=== PATIENT | male | born 1965 | race Caucasian/White ===

== ENCOUNTER 2020-01-15 12:18 | Emergency (ER) | payer OTHER, SELFPAY ==
[2020-01-15 12:34] VITALS: BP 144/90; PULSE 81; RESP 16; TEMP 36.9; O2SAT 99
--- NOTE | 2020-01-15 12:36 | ED.EAR ---
HPI - Ear Problem General Chief complaint: Upper Respiratory Infection Stated complaint: Possible ear infection Time Seen by Provider: 01/15/20 12:36 Source: patient and RN notes reviewed History of Present Illness HPI Narrative: Patient is a 54-year-old male who presents the urgent care with complaints of bilateral ear discomfort and sore throat. Patient states that he thinks the ear pressure is just from postnasal drainage. Patient states he does have a history of allergies and has been using Zyrtec and nasal spray. Patient states that he woke up this morning with an increased sore throat and some white spots . Patient denies any known exposure to COVID or strep. No other acute complaints. No acute distress noted. Patient read the plan of care. Related Data Home Medications Medication Instructions Recorded Confirmed cetirizine [Zyrtec] 10 mg PO DAILY 01/15/20 01/15/20 fluticasone propionate 2 spray INTRANASAL DAILY 01/15/20 01/15/20 rosuvastatin 10 mg DAILY 01/15/20 01/15/20 Allergies Allergy/AdvReac Type Severity Reaction Status Date / Time No Known Allergies Allergy Unknown Verified 01/15/20 12:42 Review of Systems Review of Systems: Narrative: CONSTITUTIONAL: Denies fever, chills, or sweats. EYES: Denies visual changes, redness, or discharge. ENT: Reports of bilateral otalgia, sore throat and postnasal drainage CARDIOVASCULAR: Denies chest pain, palpitations, or edema. RESPIRATORY: Denies cough or dyspnea. GASTROINTESTINAL: Denies abdominal pain, nausea, vomiting, or diarrhea. GENITOURINARY: Denies dysuria or hematuria. SKIN: Denies rash or itching. MUSCULOSKELETAL: Denies back pain, joint pain, or myalgia. NEUROLOGIC: Denies headache, numbness, or weakness. All other systems reviewed are negative, except as documented in HPI. PMFSH Social History Social History Gender identity (if verbalized by the patient): Male Comments At the time of my signature, I reviewed and agree with the nursing past medical, surgical, social, and family history. There is no relevant family history pertinent to the patient complaint. Exam Narrative: Exam Narrative: GENERAL: This is a well-nourished, well-developed patient, in no apparent distress. HEAD: normocephalic, atraumatic. EYES: PERRL. Sclera clear/white. Vision is grossly intact. EARS: External ears normal, auditory canals clear and without drainage, TMs normal without perforation. Hearing grossly intact. NOSE: External nose normal with no obvious nasal discharge, nares without redness, no rhinorrhea. THROAT: Mucous membranes moist, posterior pharynx clear. No erythema or edema noted. No exudate. NECK: Neck supple, mild bilateral nontender submandibular lymphadenopathy CARDIOVASCULAR: Regular rate and rhythm without murmurs, gallops, or rubs. RESPIRATORY: Clear to auscultation. Breath sounds equal bilaterally. No wheezes, rales, or rhonchi. SKIN: warm, intact with no suspicious lesions or rash, good texture and turgor. NEURO: awake, alert, and oriented to person, place and time. There were no obvious focal neurologic abnormalities. EXTREMITIES: No clubbing, cyanosis, or edema. Course Vital Signs Vital signs: Vital Signs Temperature 98.4 F 01/15/20 12:34 Pulse Rate 81 01/15/20 12:34 Respiratory Rate 16 01/15/20 12:34 Blood Pressure 144/90 H 01/15/20 12:34 Pulse Oximetry 99 01/15/20 12:34 Temperature 98.4 F 01/15/20 12:34 Pulse Rate 81 01/15/20 12:34 Respiratory Rate 16 01/15/20 12:34 Blood Pressure 144/90 H 01/15/20 12:34 Pulse Oximetry 99 01/15/20 12:34 Reviewed?patient is informed that they may have pre-hypertension or hypertension based on a blood pressure reading in the department. I recommend the patient call the primary care provider listed on their discharge instructions or a physician of their choice this week to arrange follow-up for further evaluation of possible pre-hypertension or hypertension. Medical Decision Ma
== END 2020-01-15 12:57 | disposition home or self-care (01) ==
PROVIDERS: Emergency Provider Nurse Practitioner Family
DX: J02.9 Acute pharyngitis, unspecified (principal); E78.00 Pure hypercholesterolemia, unspecified
CPT/HCPCS: 87081; 87880; 99213; G0463

== ENCOUNTER 2020-04-20 17:08 | Emergency (ER) | payer OTHER, SELFPAY ==
[2020-04-20 17:14] VITALS: BP 140/88; PULSE 86; RESP 16; TEMP 36.9; O2SAT 100
--- NOTE | 2020-04-20 17:20 | ED.URI ---
HPI - URI/Sore Throat General Chief Complaint: Upper Respiratory Infection Stated Complaint: possible sinus infection Time Seen by Provider: 04/20/20 17:20 Source: patient and RN notes reviewed Mode of arrival: ambulatory Limitations: no limitations History of Present Illness HPI Narrative: 54-year-old male presents with concern for sinus infection. Reports he has had nasal congestion for 3 to 5 days with scratchy eyes, drainage, cough. Reports he takes Zyrtec and Flonase year-round and has continued to take those medicines. Reports at the beginning of symptoms he had chills, sweats with no fever. Reports his recently tested positive for coronavirus. He was swabbed today, does not know his results. MD elicited complaint: nasal congestion Related Data Home Medications Medication Instructions Recorded Confirmed cetirizine [Zyrtec] 10 mg PO DAILY 01/15/20 04/20/20 fluticasone propionate 2 spray INTRANASAL DAILY 01/15/20 04/20/20 rosuvastatin 10 mg DAILY 01/15/20 04/20/20 Allergies Allergy/AdvReac Type Severity Reaction Status Date / Time No Known Allergies Allergy Unknown Verified 04/20/20 17:21 Review of Systems Review of Systems: Narrative: CONSTITUTIONAL: Denies malaise, chills, sweats, or fever. EYES: Denies visual changes, redness, or discharge. ENT: Reports rhinorrhea, congestion. Denies sinus pain, otalgia and sore throat. CARDIOVASCULAR: Denies chest pain, palpitations, or edema. RESPIRATORY: Reports cough. Denies dyspnea. GASTROINTESTINAL: Denies abdominal pain, nausea, vomiting, diarrhea SKIN: Denies rash or itching. MUSCULOSKELETAL: Denies myalgia. NEUROLOGIC: Denies headache. All systems reviewed & are unremarkable except as noted in HPI and below PMFSH Social History Social History Gender identity (if verbalized by the patient): Male Comments At time of signature, agree with nursing past medical, surgical, social and family history. There is no relevant family history pertinent to the presenting complaint Exam Narrative: Exam Narrative: GENERAL: Well-appearing, well-nourished, and in no acute distress. HEAD: Normocephalic EYES: PERRLA, conjunctivae clear ENT: Nares clear, turbinates edematous and erythematous, clear discharge. Mucous membranes moist. TM pearly beasley with dull light reflex bilaterally; no tragal tenderness. Oropharynx not erythematous without lesions. Tonsils not enlarged and without exudate, no drooling, no hoarseness, no trismus, uvula midline. NECK: Supple. No lymphadenopathy CHEST: Clear to auscultation, breath sounds equal. No wheezing, rhonchi, rales, or stridor. No respiratory distress, speaks in full sentences. HEART: Regular rate and rhythm. No murmur heard. SKIN: Warm, dry, no rash. NEURO: Alert and oriented x3. PSYCH: Normal mood and affect Course Course Emergency Course: Patient is aware of diagnosis, understands and agrees to treatment plan. Anticipatory guidance given. Patient agrees to follow-up as directed and is aware of reasons to seek care at the emergency department. Portions of this record may have been created with voice recognition software Vital Signs Vital signs: Vital Signs Temperature 98.5 F 04/20/20 17:14 Pulse Rate 86 04/20/20 17:14 Respiratory Rate 16 04/20/20 17:14 Blood Pressure 140/88 04/20/20 17:14 Pulse Oximetry 100 04/20/20 17:14 Temperature 98.5 F 04/20/20 17:14 Pulse Rate 86 04/20/20 17:14 Respiratory Rate 16 04/20/20 17:14 Blood Pressure 140/88 04/20/20 17:14 Pulse Oximetry 100 04/20/20 17:14 Reviewed. MDM - URI/Sore Throat MDM Narrative Medical decision making narrative: Differential diagnosis considered: Yao virus, strep pharyngitis, allergic rhinitis, upper respiratory tract infection, sinusitis, rhinosinusitis, nasopharyngitis. viral pharyngitis, otitis media, otitis externa, pneumonia, bronchitis, viral cough syndrome, viral syndrome, and influenza. Exam findings show no acute concerns
== END 2020-04-20 17:35 | disposition home or self-care (01) ==
PROVIDERS: Emergency Provider Nurse Practitioner
DX: J06.9 Acute upper respiratory infection, unspecified (principal); R05 Cough; E78.00 Pure hypercholesterolemia, unspecified
CPT/HCPCS: 99213; G0463

== ENCOUNTER 2021-04-23 10:54 | Emergency (ER) | payer OTHER, SELFPAY ==
[2021-04-23 11:08] VITALS: BP 130/82; PULSE 91; RESP 18; TEMP 37.2; O2SAT 97
--- NOTE | 2021-04-23 11:39 | ED.URI ---
HPI - URI/Sore Throat General Chief Complaint: Upper Respiratory Infection Stated Complaint: Allergies Time Seen by Provider: 04/23/21 11:35 Source: patient, RN notes reviewed and old records reviewed Mode of arrival: ambulatory Limitations: no limitations History of Present Illness HPI Narrative: 55 year old male who present to [facility] care with complaints of sinus pressure, congestion with nasal drainage and sore throat for the past 4 days, Patient reports that he has been taking Zyrtec and Flonase with no improvement in his symptoms. Patient reports that he has history of sinus infections and seasonal allergies in the past.Patient states that he is not aware of any fevers, no chills or sweats or any body aches. He reports that he has had COVID and he has also been vaccinated. MD elicited complaint: sore throat, rhinorrhea and nasal congestion Pertinent past history: sinusitis and seasonal allergies Onset (ago): day(s) (4) Related Data Home Medications Medication Instructions Recorded Confirmed cetirizine [Zyrtec] 10 mg PO DAILY 01/15/20 04/23/21 fluticasone propionate 2 spray INTRANASAL DAILY 01/15/20 04/23/21 rosuvastatin 10 mg DAILY 01/15/20 04/23/21 Allergies Allergy/AdvReac Type Severity Reaction Status Date / Time No Known Allergies Allergy Unknown Verified 04/23/21 11:24 Review of Systems Review of Systems: CONSTITUTIONAL: Denies fever, chills, or sweats. EYES: Denies visual changes, redness, or discharge. ENT: Positive for rhinorrhea, congestion, sore throat, no otalgia, positive for sinus pressure. CARDIOVASCULAR: Denies chest pain, palpitations, or edema. RESPIRATORY:Positive for cough no dyspnea. GASTROINTESTINAL: Denies abdominal pain, nausea, vomiting, or diarrhea. GENITOURINARY: Denies dysuria or hematuria. SKIN: Denies rash or itching. MUSCULOSKELETAL: Denies back pain, joint pain, or myalgia. NEUROLOGIC: Denies acute headache, numbness, or weakness. PSYCHIATRIC: Denies anxiety or depression. All systems reviewed & are unremarkable except as noted in HPI and below PMFSH Past Medical History Medical History (Updated 04/25/21 @ 17:49 by Lorin Coronado NP) Elevated cholesterol Seasonal allergies Sinusitis Surgical History Surgical History (Updated 04/23/21 @ 11:55 by Lorin Coronado NP) H/O removal of cyst Family History Family History (Updated 04/23/21 @ 11:56 by Lorin Coronado NP) Father Heart disease Grandparent Diabetes mellitus Social History Social History (Updated 04/23/21 @ 11:56 by Lorin Coronado NP) Smoking status: Never smoker Alcohol intake: current Alcohol use details: Social Substance use: never Living arrangements: with family Occupation/Education: retired 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 There is no relevant family history pertinent to the presenting complaint Exam Narrative: GENERAL: Well-appearing, well-nourished, and in no acute distress. HEAD: Normocephalic, atraumatic. EYES: PERRLA and EOMI. ENT: Nares red with turbinates swollen, clear rhinorrhea, sinus pressure no epistaxis. Mucous membranes moist.TM's normal with good light reflex, throat is red with uvula swollen, no lesions or exudates, tonsils mildly enlarged, post nasal drainage noted. NECK: Supple.no lymphadenopathy CHEST: Clear to auscultation. No respiratory distress.occasional cough, SAO2 97% on room air HEART: Regular rate and rhythm. No murmur heard. Normal peripheral pulses. ABDOMEN: Soft, nontender, nondistended, normal active bowel sounds. EXTREMITIES: Normal range of motion. No edema. SKIN: Warm, dry, no rash. NEURO: No focal deficits. Alert and oriented x3. Course Vital Signs Vital signs: Vital Signs Temperature 37.2 C 04/23/21 11:08 Pulse Rate 91 04/23/21 11:08 Re
== END 2021-04-23 12:00 | disposition home or self-care (01) ==
PROVIDERS: Emergency Provider Registered Nurse
DX: J32.9 Chronic sinusitis, unspecified (principal)
CPT/HCPCS: 87081; 87880; 99213; G0463

== ENCOUNTER 2022-06-23 15:25 | Emergency (ER) | payer OTHER, SELFPAY ==
--- NOTE | 2022-06-23 15:27 | ED.URI ---
HPI - URI/Sore Throat General Chief Complaint: Upper Respiratory Infection Stated Complaint: uri Time Seen by Provider: 06/23/22 15:50 Source: patient and RN notes reviewed Mode of arrival: ambulatory Limitations: no limitations History of Present Illness HPI Narrative: 56-year-old male presents concern for 4 day history of nasal congestion, rhinorrhea, bilateral ear pain, cough. Reports he has been taking [id number] medications a temporary relief. She he denies fever, aches, chills, sweats. MD elicited complaint: cough and nasal congestion Related Data Home Medications Medication Instructions Recorded Confirmed rosuvastatin 10 mg tablet 10 mg DAILY 01/15/20 06/23/22 Allergies Allergy/AdvReac Type Severity Reaction Status Date / Time No Known Allergies Allergy Unknown Verified 06/23/22 15:27 Review of Systems Review of Systems: CONSTITUTIONAL: Denies malaise, chills, sweats, or fever. EYES: Denies visual changes, redness, or discharge. ENT: Reports rhinorrhea, congestion, otalgia and sore throat. CARDIOVASCULAR: Denies chest pain, palpitations, or edema. RESPIRATORY: Reports cough. Denies dyspnea. GASTROINTESTINAL: Denies abdominal pain, nausea, vomiting, diarrhea SKIN: Denies rash or itching. MUSCULOSKELETAL: Denies myalgia. NEUROLOGIC: Denies headache. All systems reviewed & are unremarkable except as noted in HPI and below PMFSH Past Medical History Medical History (Updated 06/23/22 @ 15:59 by Tiffanie Mccoy NP) Elevated cholesterol Seasonal allergies Sinusitis Surgical History Surgical History (Updated 04/23/21 @ 11:55 by Lorin Coronado NP) H/O removal of cyst Family History Family History (Updated 04/23/21 @ 11:56 by Lorin Coronado NP) Father Heart disease Grandparent Diabetes mellitus Social History Social History (Updated 04/23/21 @ 11:56 by Lorin Coronado NP) Smoking status: Never smoker Alcohol intake: current Alcohol use details: Social Substance use: never 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 There is no relevant family history pertinent to the presenting complaint Exam Narrative: GENERAL: Well-appearing, well-nourished, and in no acute distress. HEAD: Normocephalic EYES: PERRLA, conjunctivae clear ENT: Nares clear, turbinates edematous and erythematous, clear discharge. Mucous membranes moist. TM pearly beasley with dull light reflex bilaterally; no tragal tenderness. Oropharynx not erythematous without lesions. Tonsils not enlarged and without exudate, no drooling, no hoarseness, no trismus, uvula midline. NECK: Supple. No lymphadenopathy CHEST: Clear to auscultation, breath sounds equal. No wheezing, rhonchi, rales, or stridor. No respiratory distress, speaks in full sentences. HEART: Regular rate and rhythm. No murmur heard. SKIN: Warm, dry, no rash. NEURO: Alert and oriented x3. PSYCH: Normal mood and affect Course Course Emergency Course: Patient is aware of diagnosis, understands and agrees to treatment plan. Anticipatory guidance given. Patient agrees to follow-up as directed and is aware of reasons to seek care at the emergency department. Portions of this record may have been created with voice recognition software Level of Care: Express Care Visit Vital Signs Vital signs: Reviewed. MDM - URI/Sore Throat MDM Narrative Medical decision making narrative: Differential diagnosis considered: Yao virus, strep pharyngitis, allergic rhinitis, upper respiratory tract infection, sinusitis, rhinosinusitis, nasopharyngitis. viral pharyngitis, otitis media, otitis externa, pneumonia, bronchitis, viral cough syndrome, viral syndrome, and influenza. Exam findings show no acute concerns or changes; patient is non-toxic appearing and is in no distress. Patient is appropri
[2022-06-23 15:31] VITALS: BP 153/86; PULSE 105; RESP 16; TEMP 37.1; O2SAT 99
== END 2022-06-23 16:04 | disposition home or self-care (01) ==
PROVIDERS: Emergency Provider Nurse Practitioner
DX: J06.9 Acute upper respiratory infection, unspecified (principal); E78.00 Pure hypercholesterolemia, unspecified
CPT/HCPCS: 99213; G0463

== ENCOUNTER 2022-10-26 10:30 | Emergency (ER) | payer OTHER, SELFPAY ==
[2022-10-26 10:38] VITALS: BP 128/81; PULSE 89; RESP 16; TEMP 36.7; O2SAT 99
--- NOTE | 2022-10-26 10:45 | ED.URI ---
HPI - URI/Sore Throat General Chief Complaint: Upper Respiratory Infection Stated Complaint: Sinus Time Seen by Provider: 10/26/22 10:58 Source: patient and RN notes reviewed Mode of arrival: ambulatory Limitations: no limitations History of Present Illness HPI Narrative: 57 year old male presents with concern for cough and nasal congestion for 4 days. He has been taking Zyrtec-D and Mucinex DM. He denies fever, aches, chills, sweats, sore throat, vomiting or diarrhea MD elicited complaint: cough and nasal congestion Related Data Home Medications Medication Instructions Recorded Confirmed rosuvastatin 10 mg tablet 10 mg DAILY 01/15/20 10/26/22 lisinopril 20 mg tablet 20 mg DAILY 10/26/22 10/26/22 Allergies Allergy/AdvReac Type Severity Reaction Status Date / Time No Known Allergies Allergy Unknown Verified 10/26/22 10:47 Review of Systems Review of Systems: CONSTITUTIONAL: Denies malaise, chills, sweats, or fever. EYES: Denies visual changes, redness, or discharge. ENT: Reports rhinorrhea, congestion. Denies sinus pain, otalgia and sore throat. CARDIOVASCULAR: Denies chest pain, palpitations, or edema. RESPIRATORY: Reports persistent cough. Denies dyspnea. GASTROINTESTINAL: Denies abdominal pain, nausea, vomiting, diarrhea SKIN: Denies rash or itching. MUSCULOSKELETAL: Denies myalgia. NEUROLOGIC: Denies headache. All systems reviewed & are unremarkable except as noted in HPI and below PMFSH Past Medical History Medical History (Updated 10/26/22 @ 11:07 by Tiffanie Mccoy NP) Elevated cholesterol Seasonal allergies Sinusitis Surgical History Surgical History (Updated 04/23/21 @ 11:55 by Lorin Coronado NP) H/O removal of cyst Family History Family History (Updated 04/23/21 @ 11:56 by Lorin Coronado NP) Father Heart disease Grandparent Diabetes mellitus Social History Social History (Updated 04/23/21 @ 11:56 by Lorin Coronado NP) Smoking status: Never smoker Alcohol intake: current Alcohol use details: Social Substance use: never Living arrangements: with family Occupation/Education: retired 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 There is no relevant family history pertinent to the presenting complaint Exam Narrative: GENERAL: Well-appearing, well-nourished, and in no acute distress. HEAD: Normocephalic EYES: PERRLA, conjunctivae clear ENT: Nares clear, turbinates edematous and erythematous, clear discharge. Mucous membranes moist. TM pearly beasley with dull light reflex bilaterally; no tragal tenderness. Oropharynx not erythematous without lesions. Tonsils not enlarged and without exudate, no drooling, no hoarseness, no trismus, uvula midline. NECK: Supple. No lymphadenopathy CHEST: Scattered right upper lobe wheeze, otherwise clear to auscultation, breath sounds equal. No rhonchi, rales, or stridor. No respiratory distress, speaks in full sentences. HEART: Regular rate and rhythm. No murmur heard. SKIN: Warm, dry, no rash. NEURO: Alert and oriented x3. PSYCH: Normal mood and affect Course Course Emergency Course: Patient is aware of diagnosis, understands and agrees to treatment plan. Anticipatory guidance given. Patient agrees to follow-up as directed and is aware of reasons to seek care at the emergency department. Portions of this record may have been created with voice recognition software Level of Care: Express Care Visit Vital Signs Vital signs: Vital Signs Temperature 98.0 F 10/26/22 10:38 Pulse Rate 89 10/26/22 10:38 Respiratory Rate 16 10/26/22 10:38 Blood Pressure 128/81 10/26/22 10:38 Pulse Oximetry 99 10/26/22 10:38 Oxygen Delivery Room Air 10/26/22 10:38 Temperature 98.0 F 10/26/22 10:38 Pulse Rate 89 10/26/22 10:38 Respirato
== END 2022-10-26 11:13 | disposition home or self-care (01) ==
PROVIDERS: Emergency Provider Nurse Practitioner
DX: J40 Bronchitis, not specified as acute or chronic (principal); E78.00 Pure hypercholesterolemia, unspecified
CPT/HCPCS: 99213; G0463

== ENCOUNTER 2023-08-04 14:44 | Emergency (ER) | payer OTHER, SELFPAY ==
--- NOTE | 2023-08-04 14:51 | ED.URI ---
HPI - URI/Sore Throat General Chief Complaint: Upper Respiratory Infection Stated Complaint: Sore Throat Time Seen by Provider: 08/04/23 14:50 Source: patient Mode of arrival: ambulatory Limitations: no limitations History of Present Illness HPI Narrative: Patient is a 58-year-old male that presents with body aches and sore throat since Monday. Denies any fever, chills, nausea, vomiting, diarrhea. Patient has been taking ibuprofen Related Data Home Medications Medication Instructions Recorded Confirmed rosuvastatin 10 mg tablet 20 mg PO DAILY 01/15/20 08/04/23 lisinopril 20 mg tablet 20 mg DAILY 10/26/22 08/04/23 omeprazole 20 mg capsule,delayed 20 mg PO DAILY 08/04/23 08/04/23 release Allergies Allergy/AdvReac Type Severity Reaction Status Date / Time No Known Allergies Allergy Unknown Verified 08/04/23 15:20 Review of Systems Review of Systems: All systems reviewed & are unremarkable except as noted in HPI and below Constitutional: Constitutional: Reports body ache(s), Denies fever(s), Denies headache(s), Denies malaise and Denies weakness Eyes: Eyes: Denies loss of vision ENT: Denies otalgia, Denies headache(s), Reports nasal congestion, Denies sinus pain and Reports sore throat Cardiovascular: Cardiovascular: Denies chest pain, Denies irregular heart rhythm and Denies dyspnea Respiratory: Respiratory: Denies cough and Denies dyspnea Gastrointestinal: Gastrointestinal: Denies abdominal pain, Denies melena, Denies hematochezia, Denies diarrhea, Denies nausea and Denies vomiting Musculoskeletal: Musculoskeletal: Denies back pain, Denies myalgias and Denies arthralgias Integumentary/Breasts: Skin/Breast: Denies pruritus and Denies rash Neurologic: Denies headache(s), Denies loss of vision and Denies weakness Psychiatric: Psychiatric: Reports no additional psychiatric complaints PMFSH Past Medical History Medical History Elevated cholesterol Seasonal allergies Sinusitis Surgical History Surgical History H/O removal of cyst Family History Family History Father Heart disease Grandparent Diabetes mellitus Social History Social History Smoking status: Never smoker Alcohol intake: current Alcohol use details: Social Substance use: never Living arrangements: with family Occupation/Education: retired 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 There is no relevant family history pertinent to the presenting complaint. Exam Const: General: cooperative, healthy appearing, comfortable, no acute distress and well nourished Nutritional Appearance: well nourished Orientation/consciousness: patient oriented x3 Limitations: no limitations HENMT: Head: normal to inspection, normocephalic and atraumatic Ears: hearing grossly normal bilaterally, external ears normal, TM's normal bilaterally and EAC's normal Face/Nose/Sinus: Normal external nose present, Normal nares present, Normal nasal mucous membranes and turbinates present, Normal septum present, normal facial exam, sinuses nontender and face symmetric Face and sinus: normal facial exam, sinuses nontender and face symmetric Mouth: Yes Normal oral and palatal mucosa present, Yes lip normal and Yes moist mucous membranes Teeth and gingiva: dentition normal Throat: uvula midline, abnormal tonsil bilateral erythema, posterior oropharynx abnormal edema, erythema and exudates and postnasal drainage Eyes: General: appearance normal, both eyes and all related structures Alignment and Position: alignment normal and position normal Periorbital: periorbital find
[2023-08-04 15:14] VITALS: BP 136/88; PULSE 87; RESP 16; TEMP 36.9; O2SAT 100
== END 2023-08-04 15:58 | disposition home or self-care (01) ==
PROVIDERS: Emergency Provider Nurse Practitioner Family
DX: J02.0 Streptococcal pharyngitis (principal); E78.00 Pure hypercholesterolemia, unspecified
CPT/HCPCS: 87880; 99213; G0463

== ENCOUNTER 2024-05-06 13:52 | Emergency (ER) | payer OTHER, SELFPAY ==
[2024-05-06 13:59] VITALS: BP 143/81; PULSE 89; RESP 20; TEMP 36.6; O2SAT 99
--- NOTE | 2024-05-06 14:03 | ED_ITS ---
HPI - URI/Sore Throat General Chief Complaint: Upper Respiratory Infection Stated Complaint: Sinus Time Seen by Provider: 05/06/24 14:14 Source: patient, RN notes reviewed and old records reviewed Mode of arrival: ambulatory Limitations: no limitations History of Present Illness HPI Narrative: 58-year-old male presents to the [facility] with concerns for a sinus infection that started yesterday. Reports sinus congestion. Reports ear pressure bilaterally. States he has had intermittent dizziness but denies any other symptoms. Reports a history of sinus issues in the past. No treatment prior to arrival Related Data Home Medications Medication Instructions Recorded Confirmed rosuvastatin 10 mg tablet 20 mg PO DAILY 01/15/20 05/06/24 lisinopril 20 mg tablet 20 mg DAILY 10/26/22 05/06/24 omeprazole 20 mg capsule,delayed 20 mg PO DAILY 08/04/23 05/06/24 release aspirin 81 mg tablet,delayed 81 mg DIRECTED 05/06/24 05/06/24 release (Adult Low Dose Aspirin) linaclotide 145 mcg capsule 145 mcg DIRECTED 05/06/24 05/06/24 (Linzess) Allergies Allergy/AdvReac Type Severity Reaction Status Date / Time No Known Allergies Allergy Unknown Verified 08/04/23 15:20 Review of Systems Review of Systems: All systems reviewed & are unremarkable except as noted in HPI and below Constitutional: Constitutional: Reports no additional constitutional complaints ENT: Reports as per HPI Cardiovascular: Cardiovascular: Reports no additional cardiovascular complaints, Denies chest pain and Denies dyspnea Respiratory: Respiratory: Reports no additional respiratory complaints, Denies chest congestion, Denies cough and Denies dyspnea Gastrointestinal: Gastrointestinal: Reports no additional gastrointestinal complaints, Denies abdominal pain, Denies nausea and Denies vomiting Musculoskeletal: Musculoskeletal: Reports no additional musculoskeletal complaints Integumentary/Breasts: Skin/Breast: Reports system reviewed and no additional complaints, except as docu PMFSH Past Medical History Medical History Elevated cholesterol Seasonal allergies Sinusitis Surgical History Surgical History H/O removal of cyst Family History Family History Father Heart disease Grandparent Diabetes mellitus Social History Social History Smoking status: Never smoker Alcohol intake: current Alcohol use details: Social Substance use: never Living arrangements: with family Occupation/Education: retired 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 There is no relevant family history pertinent to the patient complaint. Exam Const: General: cooperative, healthy appearing, comfortable, no acute distress, well developed, alert and well nourished Nutritional Appearance: well nourished Orientation/consciousness: patient oriented x3 Limitations: no limitations HENMT: Head: normal to inspection Ears: hearing grossly normal bilaterally, external ears normal, TM normal on the right and TM abnormal with fluid behind the TM on the left; with no loss of landmarks Face/Nose/Sinus: Normal external nose present, Normal nares present, Normal nasal mucous membranes and turbinates present, normal facial exam and face symmetric Face and sinus: normal facial exam and face symmetric Mouth: Yes Normal oral and palatal mucosa present, Yes lip normal and Yes tongue normal Throat: posterior oropharynx abnormal, uvula midline and no uvular edema Eyes: General: appearance normal, both eyes and all related structures Alignment and Position: alignment normal Periorbital: periorbital findings normal Neck: Neck: normal visual inspection, full ROM, no lymphadenopathy and no meningeal signs Chest: Chest palpation & inspection: normal inspection of the chest Resp: Effort & Inspection: normal respiratory effort and able to speak in complete sentences Auscultation: clear to auscultation bilaterally, no crackles, no rales, no rhonchi and no wheezes Cardio: Rate: regular rate Skin: General skin exam: normal color and no rashes or lesions noted Lesions: no lesions Rashes: no rashes Wounds: no wounds Neuro: General: patient oriented x3, gait normal, tone normal, moves all extremities and no meningeal signs Cognition (Neuro): normal cognition Speech: normal speech Gait exam (Neuro): Normal gait present Extrem: General: normal to inspection, full ROM, capillary refill normal and normal gait Psych: Appearance: grossly normal and well kempt Mental Status: mental status grossly normal Speech and movement: Normal speech and movement present and Clear speech present Affect: normal affect Attitude: cooperative Course Course Level of Care: Express Care Visit Vital Signs Vital signs: Vital Signs Temperature 97.9 F 05/06/24 13:59 Pulse Rate 89 05/06/24 13:59 Respiratory Rate 20 05/06/24 13:59 Blood Pressure 143/81 H 05/06/24 13:59 Pulse Oximetry 99 05/06/24 13:59 Oxygen Delivery Room Air 05/06/24 13:59 Temperature 97.9 F 05/06/24 13:59 Pulse Rate 89 05/06/24 13:59 Respiratory Rate 20 05/06/24 13:59 Blood Pressure 143/81 H 05/06/24 13:59 Pulse Oximetry 99 05/06/24 13:59 Oxygen Delivery Room Air 05/06/24 13:59 Reviewed MDM - URI/Sore Throat MDM Narrative Medical decision making narrative: Patient sitting comfortably in exam room. Nontoxic, vitals are stable, blood pressure mildly elevated at 143/81. Patient currently being treated by primary care provider Patient presents with 1 day history of sinus congestion and ear discomfort. Patient reported intermittent dizziness, most likely from the left-sided serous otitis but if he has additional concerns, discussed with him and his that additional testing, diagnostics need to be done the emergency room. We are very limited in the diagnostics that we can do. No treatment prior to arrival. Clear fluid noted behind left TM. No signs of an ear infection. No bogginess or erythema noted to the nasal passage Flu and COVID test were offered, patient stated no concern, declined Discussed treatment plan with [id number] products. Discharge instructions reviewed with patient, as well as provided in writing per nursing staff. The instructions also include specific and strict return/GO TO THE ER as well as f/u information. All questions have been answered, and the patient deny any further questions with discharge and discharge plan. Some parts of this dictation were generated by voice recognition software and may contain typographical and/or grammatical inaccuracies. Differential Diagnosis Differential diagnosis: Likely upper respiratory infection, otitis media, sinusitis and viral infection Critical Care Time Critical Care Time Critical Care Time: No Discharge Plan Discharge Clinical Impression: Sinusitis Qualifiers: Sinusitis location: unspecified location Chronicity: acute Recurrence: not specified as recurrent Qualified Code(s): J01.90 - Acute sinusitis, unspecified Acute serous otitis media of left ear Qualifiers: Recurrence: not specified as recurrent Qualified Code(s): H65.02 - Acute serous otitis media, left ear Patient Disposition: Home, Self-Care Condition: Stable Instructions: Antibiotic Form, Sinusitis (ED), Fluid In The Ear (Serous Otitis Media) (ED) Additional Instructions: Today your blood pressure was 143/81. Please follow-up with your primary care provider Your symptoms are likely due to a viral illness, which is not treated with antibiotics. Typically viral infections last 7-10 days, can linger for couple of weeks. It is very important to treat your symptoms. Plenty of water, Gatorade, Pedialyte, ice pops or Jell-O. -Alternate Tylenol and Motrin per package directions for fever or pain. You can alternate every 4 hours -Antihistamine medication such as Benadryl at night and Zyrtec/Claritin/Myla during the day can help improve symptoms. -doing daily nasal irrigations can help relieve pressure your sinuses. Things like a Neti pot -Use Flonase twice a day for 5 days then daily to help reduce the inflammation and dry up your sinuses. -You can also use Mucinex. Be sure to drink plenty of water with this medication at least 8 ounces with every dose and it is important to drink 8 to 10 glasses of water per day. Water is a natural decongestant -Eat and drink things that are easy to swallow, like tea or soup, or popsicles. -Oral rinses such as: Salt water gargles and/or may use topical anesthetic (eg. Chloraseptic spray) or lozenges to relieve dryness or throat pain). -Frequent hand washing or hand general intern is one of the best ways to prevent spread of infection. -Using a vaporizer or humidifier at night will also help thin secretions and help with coughing up phlegm. -Follow up with primary care provider in 7-10 days if condition is not improving - For new or worsening symptoms go directly to the nearest ER Patient Language: Amharic Prescriptions: No Action rosuvastatin 10 mg tablet 20 mg PO DAILY lisinopril 20 mg tablet 20 mg DAILY omeprazole 20 mg capsule,delayed release(DR/EC) 20 mg PO DAILY Linzess 145 mcg capsule 145 mcg DIRECTED aspirin [Adult Low Dose Aspirin] 81 mg Tablet,Delayed Release (Dr/Ec) 81 mg DIRECTED Follow-up/Referrals: PHYSICIAN,OCCUP THER [Primary Care Provider] - Stand Alone Forms: Work/School Release IP Time of Disposition: 14:24
== END 2024-05-06 14:31 | disposition home or self-care (01) ==
PROVIDERS: Emergency Provider Nurse Practitioner
DX: J01.90 Acute sinusitis, unspecified (principal); H65.02 Acute serous otitis media, left ear; E78.00 Pure hypercholesterolemia, unspecified; Z79.82 Long term (current) use of aspirin
CPT/HCPCS: 99211; 99213; G0463

== ENCOUNTER 2024-09-26 10:00 | Outpatient (RCR) | payer OTHER, SELFPAY ==
[2024-06-21 08:31] VITALS: PULSE 81; RESP 16; O2SAT 99
== END 2024-09-26 11:06 | disposition home or self-care (01) ==
LOC: ANHCPREHAB 10:00
DX: Z98.61 Coronary angioplasty status (principal)
CPT/HCPCS: 93798

== ENCOUNTER 2024-10-09 15:27 | Emergency (ER) | payer OTHER, SELFPAY ==
--- NOTE | 2024-10-09 15:28 | ED_ITS ---
HPI - URI/Sore Throat General Chief Complaint: Upper Respiratory Infection Stated Complaint: sore throat,achy Time Seen by Provider: 10/09/24 15:28 Source: patient Mode of arrival: ambulatory Limitations: no limitations History of Present Illness HPI Narrative: Kd is a 59-year-old male patient presenting to the clinic today with complaints of sore throat and body aches x2-3 days. He denies any runny nose or cough. No known fevers. No known exposures. MD elicited complaint: sore throat and nasal congestion Related Data Home Medications ?Medication ?Instructions ?Recorded ?Confirmed ?Last Taken ?Type rosuvastatin 10 mg tablet 20 mg PO DAILY 01/15/20 05/06/24 04/23/21 History lisinopril 20 mg tablet 20 mg DAILY 10/26/22 05/06/24 Unknown History omeprazole 20 mg capsule,delayed 20 mg PO DAILY 08/04/23 05/06/24 Unknown History release aspirin 81 mg tablet,delayed 81 mg DIRECTED 05/06/24 05/06/24 Unknown History release (Adult Low Dose Aspirin) linaclotide 145 mcg capsule 145 mcg DIRECTED 05/06/24 05/06/24 Unknown History (Linzess) Allergies Allergy/AdvReac Type Severity Reaction Status Date / Time No Known Allergies Allergy Unknown Verified 10/09/24 15:48 Review of Systems Review of Systems: Pertinent positives per HPI. Patient denies any fever, chills, rash, headache, visual changes, dizziness, cough, shortness of breath, chest pain, palpitations, nausea, vomiting, diarrhea, constipation, abdominal pain, or any urinary issues. 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 There is no relevant family history pertinent to the patient complaint. Exam Narrative: General: Well-developed, well nourished, in no apparent distress Head: Normocephalic, atraumatic Eyes: Pupils equally round and reactive to light bilaterally, EOM intact, sclera and conjunctive clear, no discharge, lids normal Ears: TMs intact and clear, ear canals clear, no drainage, grossly hearing normal. Nose: Nares patent, no discharge, no inflammation, no sinus tenderness. Mouth: Oral pharynx red without lesions or masses, good dentition, MMM. Neck: Supple, trachea midline, no enlargement of anterior or posterior cervical nodes, no thyroid masses or goiter palpable. Cardio: Regular rate and rhythm, s1 and s2 normal, no murmur appreciated. Resp: Clear to auscultation bilaterally, no rhonchi, rales, wheezing or rubs Course Course Emergency Course: Portions of this record may have been created with voice recognition software. Level of Care: Express Care Visit Vital Signs Vital signs: Vital Signs Temperature 36.8 C 10/09/24 15:30 Pulse Rate 88 10/09/24 15:30 Respiratory Rate 14 10/09/24 15:30 Blood Pressure 139/73 10/09/24 15:30 Pulse Oximetry 100 10/09/24 15:30 Temperature 36.8 C 10/09/24 15:30 Pulse Rate 88 10/09/24 15:30 Respiratory Rate 14 10/09/24 15:30 Blood Pressure 139/73 10/09/24 15:30 Pulse Oximetry 100 10/09/24 15:30 Vital signs reviewed MDM - URI/Sore Throat MDM Narrative Medical decision making narrative: At the time of visit patient is resting comfortably on the exam table. Patient appears to be nontoxic. Labs: Strep test was negative in the clinic today. We will send strep for culture. Plan: I suspect patient has pharyngitis. Supportive measures were discussed with the patient and they voiced understanding discharge instructions and agrees to treatment plan. Return precautions reviewed Differential Diagnosis Differential diagnosis: Likely upper respiratory infection, otitis media, sinusitis, viral infection, bronchitis, influenza, pharyngitis and other (COVID) Lab Data Labs: Lab Results 10/09/24 Range/Units 15:37 POC Grp A Strep Screen Negative (Negative) Discharge Plan Discharge Clinical Impression: Pharyngitis Qualifiers: Pharyngitis/tonsillitis etiology: unspecified etiology Qualified Code(s): J02.9 - Acute pharyngitis, unspecified Patient Disposition: Home Condition: Stable Instructions: Antibiotic Form, Pharyngitis (ED) Additional Instructions: Strep test was negative in the clinic. We will send strep for culture Increase fluids and stay well hydrated Tylenol/motrin for pain/fever Flonase and OTC antihistamines as directed Vicks vapor rub to open sinuses Sinus rinses for congestion Cepacol spray, cough drops, throat lozenges, warm tea with honey/lemon, gargle salt water to soothe throat BRAT diet for diarrhea Clear liquids x 24 hours then advance as tolerated for nausea/vomiting Go to the ED if you develop a worsening in your condition- high fever not controlled by Tylenol or Motrin, dehydration, weakness, lethargy, shortness of breath, or chest pain. Follow up with your PCP in 3-5 days if symptoms persist. Patient Language: Peruvian Prescriptions: No Action rosuvastatin 10 mg tablet 20 mg PO DAILY lisinopril 20 mg tablet 20 mg DAILY omeprazole 20 mg capsule,delayed release(DR/EC) 20 mg PO DAILY Linzess 145 mcg capsule 145 mcg DIRECTED aspirin [Adult Low Dose Aspirin] 81 mg Tablet,Delayed Release (Dr/Ec) 81 mg DIRECTED Follow-up/Referrals: Pollo,Ramiro Flores DO [Primary Care Provider] - Time of Disposition: 15:51 Quality NIHSS Nursing Documentation ED NIHSS nursing documentation: reviewed/agree
[2024-10-09 15:30] VITALS: BP 139/73; PULSE 88; RESP 14; TEMP 36.8; O2SAT 100
[2024-10-09 15:51] LABS: EDSTREPNEGPOS1 Negative (Negative)
== END 2024-10-09 15:58 | disposition home or self-care (01) ==
PROVIDERS: Emergency Provider Nurse Practitioner Family; PCP Hospitalist
DX: J02.9 Acute pharyngitis, unspecified (principal); E78.00 Pure hypercholesterolemia, unspecified; Z79.82 Long term (current) use of aspirin
CPT/HCPCS: 87081; 87880; 99213; G0463